=== PATIENT | male | born 1955 | race Caucasian/White ===

== ENCOUNTER → 2016-11-16 | Day surgery (SDC) | payer OTHER ==
[~2016-11-16] MED LIST: Lactated Ringers 1,000 ML IV SCH; Propofol 200 MG/20 ML SDV IV ONE
[2016-11-16 13:29] VITALS: BP 131/76
--- NOTE | 2016-11-19 07:02 | OR ---
DATE OF OPERATION: 11/16/2016 PREOPERATIVE DIAGNOSIS: SCREENING COLONOSCOPY. POSTOPERATIVE DIAGNOSIS: SCREENING COLONOSCOPY. SURGEON: Shivam Lomeli MD PROCEDURE: FULL-LENGTH COLONOSCOPY. ANESTHESIA: ELDERLY COMPANION due to hypertension. COMPLICATIONS: None. SPECIMEN: None. FINDINGS: 1. Full-length colonoscopy. 2. Mild sigmoid diverticulosis. RECOMMENDATIONS: Routine colonoscopy every 10 years. INDICATIONS: The patient was in for routine physical. He has not had a colonoscopy in 10 years. We recommended screening procedure. DESCRIPTION OF PROCEDURE: The patient was prepped and draped, placed in the left lateral decubitus position. A lubricated Olympus colonoscope was inserted and with relative ease advanced to the cecum. Direct visualization of the ileocecal valve and appendiceal orifice was accomplished. The bowel prep was adequate. Upon withdrawal of the scope, throughout the entire length of the colon, I found no signs of any polyps, mass, ulceration, or bleeding sites. There were no vascular abnormalities or signs of colitis. The patient have a few scattered diverticula in the sigmoid area, but very mild. No acute inflammation. Rectal vault was unremarkable with some prominent vascular tissue. Retroflexion showed no perianal lesions. Air was then suctioned and the scope was removed without complication. LETI/CRYSTAL /[id number]
== END ==
LOC: CC.SDS 10:48
PROVIDERS: ATTEND Family Medicine
DX: Z12.11 Encounter for screening for malignant neoplasm of colon (principal); K57.30 Diverticulosis of large intestine without perforation or abscess without bleeding; N40.0 Benign prostatic hyperplasia without lower urinary tract symptoms; E78.5 Hyperlipidemia, unspecified; I10 Essential (primary) hypertension; Z79.82 Long term (current) use of aspirin; Z98.890 Other specified postprocedural states; Z79.899 Other long term (current) drug therapy; Z72.0 Tobacco use
CPT/HCPCS: 45378; J7120; J2704

== ENCOUNTER → 2020-04-14 | Day surgery (SDC) | payer MEDICARE, OTHER ==
[~2020-04-14] MED LIST changes: +Ketorolac 30 MG/ML SDV ONE; -Lactated Ringers 1,000 ML IV SCH; +Lidocaine 0.5% 50 ML SDV ONE; +Midazolam 1 MG/ML 2 ML SDV ONE; +Ondansetron 4 MG/2 ML SDV ONE; -Propofol 200 MG/20 ML SDV IV ONE; +Propofol 200 MG/20 ML SDV ONE; +fentaNYL 100 MCG/2 ML SDV ONE
[2020-04-14] MEDS: Lactated Ringers 1,000 ML IV SCH (07:45)
[2020-04-14] MEDS: ceFAZolin 1 GM Vial IVPUSH STA (08:00)
--- NOTE | 2020-04-14 09:54 | OR ---
DATE OF OPERATION: 04/14/2020 PREOPERATIVE DIAGNOSIS: BILATERAL CARPAL TUNNEL SYNDROME, RIGHT GREATER THAN LEFT. POSTOPERATIVE DIAGNOSIS: BILATERAL CARPAL TUNNEL SYNDROME, RIGHT GREATER THAN LEFT. SURGEON: Arron Antonio MD PROCEDURE: OPEN RELEASE OF RIGHT CARPAL TUNNEL SYNDROME. ANESTHESIA: [place] block. SPECIMEN: None. INDICATIONS: This 64-year-old male has typical carpal tunnel syndromes bilaterally, the right side is more symptomatic than the left. He has documented EMG evidence of carpal tunnel syndrome on both sides. DESCRIPTION OF PROCEDURE: After adequate preparation, a longitudinal incision was made in the crease at the wrist and taken down to the transverse carpal ligament. This was sharply incised with a 15 knife blade and then carried down both proximally and distally to entirely cut through full thickness of the transverse carpal ligament. There was no injury to the median nerve. The wound was closed using interrupted 2-0 nylon for the skin and the hand was sterilely wrapped. B/CRYSTAL /[id number]
[2020-04-14 10:58] VITALS: BP 123/71; PULSE 57
== END ==
LOC: CC.SDS 07:21
PROVIDERS: ATTEND Surgery
DX: G56.03 Carpal tunnel syndrome, bilateral upper limbs (principal); I10 Essential (primary) hypertension; E78.5 Hyperlipidemia, unspecified
CPT/HCPCS: 64721; J0690; J7120; J1885; J2001; J2250; J2405; J2704; J3010